=== PATIENT | female | born 1950 | race Caucasian/White ===

== ENCOUNTER 2021-04-07 21:54 | Emergency (ER) | payer MEDICARE ==
[~2021-04-07] VITALS: Ht 167.6 cm; Wt 88.5 kg
[~2021-04-07 21:54] MED LIST: BACLOFEN 10MG T10 MG PO; CALCIUM + VITA1 EACH PO; EFFEXOR XR150 MG PO; ESTRADIOL0.5 MG PO; NAPROXEN500 MG PO; ZOCOR80 MG PO
[2021-04-07 22:25] LABS: BASOPHIL 0.2 % (0-2); EOSINOPHIL 0 % (0-7); HCT 46.8 % (37.0-47.0); HGB 15.9 g/dl (12.5-16.0); LYMPHOCYTE 5.3 % (15-48); MCH 31.7 pg (25.0-31.0); MCV 93.2 fL (78.0-100.0); MONOCYTE 0.3 % (0-12); MPV 10.5 fL (6.0-9.5); NEUTROPHIL 93.9 % (41-80); NRBC 0; PLT 171 K/uL (150-400); RBC 5.02 M/uL (4.20-5.40); RDW 11.9 % (11.5-14.0)
[2021-04-07 22:26] LABS: WBC 11.6 K/uL (4.0-10.5)
[2021-04-07 22:47] LABS: ALBUMIN 3.8 g/dL (3.4-5.0); BILIRUBIN - TOTAL 0.7 mg/dL (0.2-1.0); BUN/CREAT RATIO (CALC) 22.7 RATIO; CREATININE 0.75 mg/dL (0.51-0.95); GLOBULIN (CALCULATION) 3.3 g/dL; POTASSIUM 3.1 mmol/L (3.5-5.1); TOTAL PROTEIN 7.1 g/dL (6.4-8.2)
[2021-04-08] MEDS ORDERED: POTASSIUM CHLO10 MEQ PO (01:49)
== END 2021-04-08 05:00 | disposition home or self-care (01) ==
LOC: FER 21:54
PROVIDERS: Emergency Medicine
DX: R06.00 Dyspnea, unspecified (principal); R25.2 Cramp and spasm; I10 Essential (primary) hypertension; Z79.899 Other long term (current) drug therapy; Z20.822 Contact with and (suspected) exposure to COVID-19
CPT/HCPCS: 36415; 71045; 71275; 80053; 84484; 85025; 85379; 93005; J1170; J7030; Q9967; U0002